=== PATIENT | male | born 1945 | race Caucasian/White ===

== ENCOUNTER 2018-12-25 09:41 | Day surgery (SDC) | payer OTHER, SELFPAY ==
[2018-12-25] VITALS (7 sets, daily range): BP systolic 96–124; BP diastolic 60–76; PULSE 57–67; RESP 15–24; TEMP 36.2–36.5; O2SAT 92–96
--- NOTE | 2018-12-25 | PATH_ITS ---
[facility] Accession Number: [id number] . 01 Material submitted: . colon - TRANSVERSE COLON POLYP . 02 Diagnosis: Transverse Colon, Polyp, Biopsy: Tubular adenoma. [facility]/12/26/2018 . 02 Electronically signed: . Alina Madden MD, Pathologist NPI- [id number] . 01 Gross description: . TRANSVERSE COLON POLYP: Received in formalin are 2 fragment(s) of palencia, soft tissue measuring 0.2 x 0.2 x 0.2 cm to 0.4 x 0.2 x 0.2 cm which is entirely submitted and submitted entirely in 1 cassette(s) /DMC /DMC . 02 Pathologist provided ICD-10: D12.3 . 02 CPT . 904014 Performed at: 01 [facility] [address] [id number] MD Juan Santana MD Phone: [phone] Performed at: 02 [facility] [address] [place], [place] [id number] MD Alina Madden MD Phone: [phone]
[2018-12-25] MEDS: SODIUM CHLORIDE 0.9% 1,000 ML 42 ML IV (10:21)
--- NOTE | 2018-12-25 10:39 | PM.HP.1 ---
History of Present Illness Date Patient Seen: 12/25/18 Time Patient Seen: 10:40 Chief complaint: [id number] Narrative: History of colonic and duodenal polyps Patient History Medical History (Updated 12/24/18 @ 16:25 by Sandra Longo, RN) Anxiety (Acute) Chronic cough (Acute) Depression (Acute) Erectile dysfunction (Acute) Fatigue (Acute) Heartburn (Acute) History of colon polyps (Acute) Hyperlipidemia (Acute) Hypertension (Acute) Impaired hearing (Acute) Numerous skin moles (Acute) Pain with urination (Acute) Rash (Acute) Ringing in ears (Acute) Testicular pain (Acute) Wheezing (Acute) Surgical History (Updated 12/24/18 @ 16:22 by Sandra Longo RN) History of tonsillectomy (Acute) Total knee replacement status (Acute) Social History household members: spouse Family & Social History Social History: household members spouse Meds Home Medications Medication Instructions Recorded Confirmed Type diclofenac sodium 2 g TOPICAL TID 12/24/18 12/24/18 History ketoconazole 1 applic TOPICAL BID 12/24/18 12/24/18 History omega [id number]-fish oil [Fish Oil] 1 cap PO DAILY 12/24/18 12/24/18 History paroxetine HCl 40 mg PO DAILY 12/24/18 12/25/18 History sildenafil 100 mg PO PRN 12/24/18 History simvastatin 20 mg PO DAILY 12/24/18 12/25/18 History tamsulosin 0.8 mg PO BEDTIME 12/24/18 12/24/18 History urea 1 applic TOPICAL 12/24/18 History tamsulosin [Flomax] 0.4 mg PO DAILY 12/25/18 12/25/18 History tiotropium bromide [Spiriva 2 puff INHALATION PRN 12/25/18 History Respimat] Allergies Allergy/AdvReac Type Severity Reaction Status Date / Time acetaminophen [From Percocet] Allergy Severe Unlisted Verified 12/24/18 16:35 hydrocodone Allergy Severe Unlisted Verified 12/24/18 16:35 oxycodone [From Percocet] Allergy Severe Unlisted Verified 12/24/18 16:35 Exam Vital Signs (past 8 hours): - 12/25/18 10:11 Temperature 97.6 F Pulse Rate 67 Respiratory Rate 16 Blood Pressure 120/61 Pulse Oximetry 94 Oxygen Delivery Method Room Air Narrative Exam Narrative: Oropharynx free of lesions Chest clear to auscultation percussion Cardiac exam reveals no S3 or murmur Assessment & Plan Assessment & Plan narrative: History of gastroduodenal polyps Plan is to perform both upper endoscopy and colonoscopy. Risks, benefits, alternatives have been explained.
--- NOTE | 2018-12-25 10:40 | PM.OP.ENDO ---
Operative Date/Time/Diagnoses Date of procedure: 12/25/18 Time of procedure: 10:41 Pre-op diagnosis: History of gastroduodenal polyps and colonic polyps Procedure & Clinicians Study performed: EGD and colonoscopy Same procedure as scheduled: Yes Indications: History of duodenal and colonic polyps Surgeon: Yessenia Small Procedure Notes Procedure in detail: After informed consent was obtained the patient was placed in the left lateral decubitus position. The video upper scope was placed into the oropharynx with the patient's health swallowed into the esophagus. The esophagus stomach and duodenum were all carefully examined. On withdrawal, retroflexed view the GE junction was performed. The scope was removed the patient tolerated the procedure well The patient was then turned and the colonoscope was substituted. This was passed to the rectum and slowly advanced to just above the cecum. On slow withdrawal mucosa was carefully examined. The scope was removed. The patient tolerated procedure well. Blood loss none Complications none Sedation Total sedation time 38 minutes Versed 9 mg fentanyl 100 micro g IV titration Findings Colonoscopy 1. Scattered diverticulosis throughout the colon 2. Otherwise negative colonoscopy to just above IC valve. EGD 1. Despite extra medication patient could not tolerate intubation and was quite combative. Procedure terminated. We should plan to do upper endoscopy with anesthesia assistance in the future. The office will call to schedule.
--- NOTE | 2018-12-25 11:10 | SUR.OPER ---
HEARING AID LEFT EAR TO IN PREOP.
[2018-12-25] MEDS: MIDAZOLAM 5 MG/5 ML VIAL IV (11:50)
[2018-12-25] MEDS: fentaNYL 250 MCG/5 ML INJ IV (11:51)
== END 2018-12-25 13:14 | disposition home or self-care (01) ==
PROVIDERS: Visit Provider Internal Medicine Gastroenterology
PROC: 0DJ08ZZ Inspection of Upper Intestinal Tract, Via Natural or Artificial Opening Endoscopic (ICD-10-PCS; CPT 43235; principal; 2018-12-25 11:00)
PROC: 0DJD8ZZ Inspection of Lower Intestinal Tract, Via Natural or Artificial Opening Endoscopic (ICD-10-PCS; CPT 45378; 2018-12-25 11:00)
DX: Z86.010 Personal history of colon polyps (principal); Z87.19 Personal history of other diseases of the digestive system; Z53.09 Procedure and treatment not carried out because of other contraindication; K57.30 Diverticulosis of large intestine without perforation or abscess without bleeding
CPT/HCPCS: 43235; 45378; J2250; J3010

== ENCOUNTER → 2019-03-18 07:44 | Outpatient (CLI) | payer OTHER, SELFPAY ==
[2019-03-18 08:40] LABS: BUN Creatinine Ratio 16.9 (6-22); Blood Urea Nitrogen 22 mg/dL (9-20); Carbon Dioxide 27 mmol/L (22-32); Chloride 107 mmol/L (98-107); Estimated Glomerular Filt Rate 54.1 mL/min (>60); Glucose 97 mg/dL (80-110); HEMOLYSIS < 15 (0-50); Potassium 4.6 mmol/L (3.4-5.1); Sodium 141 mmol/L (137-145)
--- NOTE | 2019-03-18 09:37 | DI.CT.S_ITS ---
PROCEDURE: CT ABDOMEN WO/W CON INDICATIONS: adrenal nodule. TECHNIQUE: Noncontrast 3 mm thick sections acquired through the pancreas. After the administration of intravenous contrast, 3 mm thick pancreatic-phase images acquired from the diaphragm to the iliac crests. 3 mm thick coronal and sagittal reformats were performed. For radiation dose reduction, the following was used: automated exposure control, adjustment of mA and/or kV according to patient size. COMPARISON: None. FINDINGS: Image quality: Excellent. Lung bases: Lung bases are clear. Heart size is normal. Solid organs: Gallbladder normal. Spleen is normal in size and enhancement. No adrenal nodules. Kidneys are normal in size and enhancement, without hydronephrosis. The liver appears normal. Note is made of a simple cyst at the right dome hemidiaphragm within the liver parenchyma, measuring up to 2.7 cm. There is a 5.2 cm AP by 4.0 cm transverse left adrenal mass that is comprised of a dense peripheral calcification rim and a central radiolucent component with the overall appearance suggestive of a focus of prior adrenal hemorrhage. Peritoneum and bowel: Unenhanced bowel loops demonstrate normal wall thickness and caliber. No free fluid or air. Vessels: Aorta and inferior vena cava are normal in size. Bones: No suspicious bony lesions. No vertebral body compression fractures. Miscellaneous: No ventral hernias. 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 No internal enhancement foun, no enhancing lesions seen elsewhere. The clinical history with absence of any comparison studies from this institution implies that a comparison study may be available for review and it is obtained I would be happy to generate an addendum to this report with reference to the prior imaging. Dictated by: Daryn Christianson M.D. on 03/18/2019 at 11:12 Approved by: Daryn Christianson M.D. on 03/18/2019 at 11:18
== END ==
LOC: CT 07:46 → LAB 08:15
PROVIDERS: Visit Provider Nurse Practitioner
DX: E27.9 Disorder of adrenal gland, unspecified (principal)
CPT/HCPCS: 36415; 74170; 80048; Q9967